=== PATIENT | male | born 1990 | race Caucasian/White ===

== ENCOUNTER 2020-08-19 20:36 | Emergency (ER) | payer OTHER ==
[~2020-08-19] VITALS: Ht 193 cm; Wt 86.2 kg
[2020-08-19] MEDS ORDERED: CIPRO500 MG (20:48)
[2020-08-19] MEDS ORDERED: [UNRECOGNIZED DRUG - OTHER] (20:48)
[2020-08-19] MEDS ORDERED: DICLOFENAC POTA50 MG PO (23:03)
[2020-08-19] MEDS ORDERED: SKELAXIN800 MG PO (23:03)
== END 2020-08-20 01:37 | disposition home or self-care (01) ==
LOC: ER 20:36
DX: R25.2 Cramp and spasm (principal); E86.0 Dehydration

== ENCOUNTER 2021-01-23 08:27 | Outpatient (CLI) | payer OTHER ==
[~2021-01-23 08:27] MED LIST: CIPRO500 MG; DICLOFENAC POTA50 MG PO; SKELAXIN800 MG PO; [UNRECOGNIZED DRUG - OTHER]
== END 2021-01-23 08:35 | disposition home or self-care (01) ==
LOC: RAD 08:27
DX: M79.662 Pain in left lower leg (principal)

== ENCOUNTER 2021-06-12 12:15 | Outpatient (CLI) | payer OTHER | END 2021-06-12 12:24 | disposition home or self-care (01) | LOC: RAD 12:15 | PROVIDERS: ATTEND Internal Medicine Cardiovascular Disease | DX: R07.89 Other chest pain (principal) ==

== ENCOUNTER 2021-08-02 13:20 | Outpatient (CLI) | payer OTHER | END 2021-08-02 13:21 | disposition home or self-care (01) | LOC: TOM 13:20 | PROVIDERS: ATTEND Internal Medicine Cardiovascular Disease | DX: R07.89 Other chest pain (principal); U09.9 Post COVID-19 condition, unspecified ==

== ENCOUNTER 2021-12-02 12:43 | Emergency (ER) | payer OTHER ==
[~2021-12-02] VITALS: Ht 193 cm; Wt 90.7 kg
== END 2021-12-02 17:52 | disposition home or self-care (01) ==
LOC: ER 12:43
DX: M79.605 Pain in left leg (principal); W18.30XA Fall on same level, unspecified, initial encounter; Y93.9 Activity, unspecified; Y92.9 Unspecified place or not applicable